=== PATIENT | female | born 1985 | race Caucasian/White ===

== ENCOUNTER 2016-07-07 12:02 | Emergency (ER) | payer OTHER ==
[~2016-07-07] VITALS: Ht 167.6 cm; Wt 65.3 kg
[~2016-07-07 12:02] MED LIST: ADAL40KI SC; ASPI-435 PO; LISI-729 PO; MULTTAB58 PO; OMEP20CA9 PO; PYRI60TA2 PO; VNTHFA/IN INH
[2016-07-07 12:08] VITALS: TEMP 37; Ht 167.6 cm; Wt 65.3 kg
[2016-07-07] MEDS ORDERED: ERYT250C PO (12:19)
[2016-07-07] MEDS ORDERED: NADO20TA PO (12:19)
[2016-07-07] MEDS ORDERED: ONDANSETRON INJ 2 MG/ML 2 ML VIAL IV STA (12:31)
[2016-07-07] MEDS ORDERED: SODIUM CHLORIDE 0.9% 1000ML 1,000 ML IV STA (12:31)
[2016-07-07] MEDS ORDERED: OPTIRAY 320 IV PRN (12:45)
[2016-07-07 12:49] VITALS: O2SAT 99
--- NOTE | 2016-07-07 13:06 | DIAGNOSTIC IMAGING REPORT ---
CHEST ONE VIEW PORTABLE CLINICAL HISTORY: Pain, radiating to the abdomen. COMPARISON STUDY: 07/16/2015 FINDINGS: There are postsurgical changes of a midline sternotomy. There is no change in the cardiac appearance. There is slight indistinctness of the right hemidiaphragm unchanged the prior study. There is no failure. There is no focal pulmonary consolidation. There are no significant pleural effusions.[ IMPRESSION: Minor right basilar scarring. No acute findings. Electronically signed by: Stefano Gaitan M.D. 07/07/2016 1:04 PM Dictated Date/Time: 07/07/2016 1:03 PM
[2016-07-07 13:09] LABS: BASO % 0.4 %; BASO ABS # 0.02 K/uL (0-0.2); COMPLETE YES; EOS % 5.4 %; HEMATOCRIT 41.9 % (37-47); IG% 0.2 %; LYMPH % 22.9 %; LYMPH ABS # 1.27 K/uL (1.2-3.4); MEAN CORPUSCULAR HEMOGLOBIN 27.5 pg (25-34); MEAN CORPUSCULAR HGB CONC 33.2 g/dl (32-36); MEAN PLATELET VOLUME 10.6 fL (7.4-10.4); MONO % 7.2 %; NEUT % 63.9 %; PLATELET COUNT 181 K/uL (130-400); RED BLOOD COUNT 5.05 M/uL (4.2-5.4); WHITE BLOOD COUNT 5.55 K/uL (4.8-10.8)
[2016-07-07 13:23] LABS: BUN/CREATININE RATIO 18.7 (10-20); CALCIUM 9.4 mg/dl (8.5-10.1); CREATININE 0.76 mg/dl (0.60-1.20)
[2016-07-07 13:29] LABS: URINE APPEARANCE CLEAR (CLEAR); URINE BILIRUBIN NEG (NEG); URINE COLOR YELLOW; URINE EPITHELIAL CELL AUTO 0-5 /lpf (0-5); URINE NITRITE NEG (NEG); URINE SPECIFIC GRAVITY 1.009 (1.000-1.030); UROBILINOGEN NEG (NEG); ZZUR CULT IF INDIC CLEAN CATCH NO
[2016-07-07 13:31] LABS: MANUAL MICROSCOPIC REQUIRED? NO; REVIEW REQ? NO
--- NOTE | 2016-07-07 13:57 | DIAGNOSTIC IMAGING REPORT ---
CT ABD/PELVIS IV CONTRAST ONLY CLINICAL HISTORY: Left upper quadrant abdominal pain. History of transposition of the great vessels. COMPARISON STUDY: 10/16/2013 TECHNIQUE: Following the IV administration of 91 mL of Optiray-320, CT scan of the abdomen and pelvis was performed from the lung bases to the proximal femurs. Images are reviewed in the axial, sagittal, and coronal planes. IV contrast was administered without complication. CT DOSE: 307.95 mGy.cm FINDINGS: Lower chest: There is a prominent inferior vena cava. There are no pleural effusions. There is no basilar consolidation. There is a 4 mm right lower lobe pulmonary nodule, unchanged from the prior study. There is also a stable subpleural 5 mm left lower lobe pulmonary nodule. Liver: The liver demonstrates heterogeneous enhancement without evidence of focal mass. Gallbladder: Surgically absent Spleen: The spleen is mildly enlarged measuring 12 cm. Pancreas: Unremarkable. Adrenal glands: Unremarkable. Kidneys: There is an 11 mm upper pole left renal cyst. 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 There is no hydronephrosis. Bowel: There are no transition zones to indicate bowel obstruction. There is a tiny umbilical hernia. There is no acute diverticulitis. There is no evidence of acute appendicitis. Peritoneum: There is a small amount of free fluid in the pelvis. No free air is visualized. Vasculature: The abdominal aorta is normal in course and caliber. There is minor infiltration of the fat surrounding the mesenteric vessels proximally. Adenopathy: None. Pelvic viscera: The bladder, and pelvic viscera are unremarkable. Skeletal structures: No destructive osseous lesions are seen. IMPRESSION: 1. No evidence of bowel obstruction. No evidence of free air 2. Mild splenomegaly similar to the prior study 3. Heterogeneous hepatic enhancement without evidence of focal mass 4. Surgically absent gallbladder 5. Mild nonspecific infiltration of the fat surrounding the central mesenteric vessels 6. No evidence of acute diverticulitis. No evidence of acute appendicitis. 7. Small amount of free pelvic fluid Electronically signed by: Stefano Gaitan M.D. 07/07/2016 1:55 PM Dictated Date/Time: 07/07/2016 1:49 PM
[2016-07-07] MEDS ORDERED: KETOROLAC TROMETHAMINE 30 MG/ML VIAL IV STA (14:36)
--- NOTE | 2016-07-07 14:39 | EMERGENCY ROOM VISIT NOTE ---
History Report prepared by Judd: Brittney Wilkinson Under the Supervision of: Dr. Franco Batista D.O. First contact with patient: 12:19 Chief Complaint: CARDIAC ASSESSMENT Stated Complaint: BACK PAIN,ANGINA,DIAPHRAGM PAIN,NAUSEA Nursing Triage Summary: patient c/o worsening back and chest pain, states "I have had bad back pain for several days, yesterday it got worse and I am having left sided chest pain. 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 She is also experiencing upper abdominal pain, shoulder, and back pain on the left side. Initially, she attributed the pain in her left shoulder to muscle strain, but the pain has not resolved. The pain in her chest is described as clenching. The back pain is described as dull and burning. She describes the pain as coming in waves, at it worst, becoming so painful that she cannot breathe. She is also experiencing some nausea. She has a history of cardiac problems and gastrointestinal issues. She recently started taking erythromycin for delayed gastric emptying and notes that her symptoms started soon after. Source of History: patient Onset: few days ago Position: chest (left) Quality: other (clenching) Timing: waxes/wanes Associated Symptoms: + abdominal pain, + back pain, + nausea Note: Pt reports shoulder pain. Review of Systems See HPI for pertinent positives & negatives. A total of 10 systems reviewed and were otherwise negative. Past Medical & Surgical Medical Problems: (1) Congenital heart disease (2) History of ascites (3) History of bacterial endocarditis (4) Ovarian Cyst Nec/Nos (5) Paroxysmal VT (6) Rheumatoid arthritis Surgical Problems: (1) H/O section (2) H/O esophagogastroduodenoscopy (3) Hx of cholecystectomy (4) S/P bidirectional Adeel shunt (5) S/P Ion-Taussig shunt (6) S/p modified Fontan operation (7) S/P right and left heart catheterization (8) S/p transcatheter biopsy (9) S/P tubal ligation Family History Cancer FH: HTN (hypertension) FH: diabetes mellitus FH: kidney disease Gallbladder disease Heart disease Social History Smoking Status: Never Smoker Marital Status: in relationship Housing Status: lives with family Occupation Status: unemployed Current/Historical Medications Scheduled Adalimumab (Humira Pen), 1 DOSE SC Q2WEEK Aspirin (Aspirin 81), 81 MG PO QAM Erythromycin Base (Erythromycin), 250 MG PO TID Lisinopril (Prinivil), 5 MG PO QAM Multiple Vitamin (Multivitamin), 1 TAB PO QAM Nadolol (Corgard), 20 MG PO DAILY Omeprazole (Prilosec), 20 MG PO QAM Allergies Coded Allergies: Metoclopramide (Verified Adverse Reaction, Intermediate, "SEVERE ANXIETY ATTACK", 07/07/16) Physical Exam Vital Signs Date Time Temp Pulse Resp B/P Pulse Ox O2 Delivery O2 Flow Rate FiO2 07/07/16 13:14 50 07/07/16 13:08 44 19 119/57 93 Room Air 07/07/16 12:49 99 Room Air 07/07/16 12:08 37.0 101 20 122/64 98 Room Air Physical Exam CONSTITUTIONAL/VITAL SIGNS: Reviewed / noted above. GENERAL: Non-toxic in appearance. INTEGUMENTARY: Warm, dry, and [place]. HEAD: Normocephalic. EYES: without scleral icterus or trauma. ENT/OROPHARYNX: clear and moist. LYMPHADENOPATHY/NECK: Is supple without lymphadenopathy or meningismus. RESPIRATORY: Lungs clear and equal. CARDIOVASCULAR: Regular rate and rhythm. GI/ABDOMEN: Soft, mild tenderness to palpation of epigastric and LUQ. No organomegaly or pulsatile mass. No rebound or guarding. Normal bowel sounds. EXTREMITIES: Warm and well perfused. BACK: No CVA tenderness. NEUROLOGICAL: Intact without focal deficits. PSYCHIATRIC: normal affect. MUSCULOSKELETAL: Normally developed with good muscle tone. Medical Decision & Procedures ER Provider Diagnostic Interpretation: X ray results and stated below per my interpretation and radiology interpretation. Radiology results as stated below per my review and radiologist interpretation: CHEST ONE VIEW PORTABLE CLINICAL HISTORY: Pain, radiating to the abdomen. COMPARISON STUDY: 07/16/2015 FINDINGS: There are postsurgical changes of a midline sternotomy. There is no change in the cardiac appearance. There is slight indistinctness of the right hemidiaphragm unchanged the prior study. There is no failure. There is no focal pulmonary consolidation. There are no significant pleural effusions.[ IMPRESSION: Minor right basilar scarring. No acute findings. Electronically signed by: Stefano Gaitan M.D. 07/07/2016 1:04 PM Dictated Date/Time: 07/07/2016 1:[address] ABD/PELVIS IV CONTRAST ONLY CLINICAL HISTORY: Left upper quadrant abdominal pain. History of transposition of the great vessels. COMPARISON STUDY: 10/16/2013 TECHNIQUE: Following the IV administration of 91 mL of Optiray-320, CT scan of the abdomen and pelvis was performed from the lung bases to the proximal femurs. Images are reviewed in the axial, sagittal, and coronal planes. IV contrast was administered without complication. CT DOSE: 307.95 mGy.cm FINDINGS: Lower chest: There is a prominent inferior vena cava. There are no pleural effusions. There is no basilar consolidation. There is a 4 mm right lower lobe pulmonary nodule, unchanged from the prior study. There is also a stable subpleural 5 mm left lower lobe pulmonary nodule. Liver: The liver demonstrates heterogeneous enhancement without evidence of focal mass. Gallbladder: Surgically absent Spleen: The spleen is mildly enlarged measuring 12 cm. Pancreas: Unremarkable. Adrenal glands: Unremarkable. Kidneys: There is an 11 mm upper pole left renal cyst. 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 There is no hydronephrosis. Bowel: There are no transition zones to indicate bowel obstruction. There is a tiny umbilical hernia. There is no acute diverticulitis. There is no evidence of acute appendicitis. Peritoneum: There is a small amount of free fluid in the pelvis. No free air is visualized. Vasculature: The abdominal aorta is normal in course and caliber. There is minor infiltration of the fat surrounding the mesenteric vessels proximally. Adenopathy: None. Pelvic viscera: The bladder, and pelvic viscera are unremarkable. Skeletal structures: No destructive osseous lesions are seen. IMPRESSION: 1. No evidence of bowel obstruction. No evidence of free air 2. Mild splenomegaly similar to the prior study 3. Heterogeneous hepatic enhancement without evidence of focal mass 4. Surgically absent gallbladder 5. Mild nonspecific infiltration of the fat surrounding the central mesenteric vessels 6. No evidence of acute diverticulitis. No evidence of acute appendicitis. 7. Small amount of free pelvic fluid Electronically signed by: Stefano Gaitan M.D. 07/07/2016 1:55 PM Dictated Date/Time: 07/07/2016 1:49 PM Laboratory Results 07/07/16 12:40 Red Blood Count 5.05, Mean Corpuscular Volume 83.0, Mean Corpuscular Hemoglobin 27.5, Mean Corpuscular Hemoglobin Concent 33.2, Mean Platelet Volume 10.6, Neutrophils (%) (Auto) 63.9, Lymphocytes (%) (Auto) 22.9, Monocytes (%) (Auto) 7.2, Eosinophils (%) (Auto) 5.4, Basophils (%) (Auto) 0.4, Neutrophils # (Auto) 3.55, Lymphocytes # (Auto) 1.27, Monocytes # (Auto) 0.40, Eosinophils # (Auto) 0.30, Basophils # (Auto) 0.02 07/07/16 12:40 Test 07/07/16 12:40 07/07/16 13:00 White Blood Count 5.55 K/uL (4.8-10.8) Red Blood Count 5.05 M/uL (4.2-5.4) Hemoglobin 13.9 g/dL (12.0-16.0) Hematocrit 41.9 % (37-47) Mean Corpuscular Volume 83.0 fL (80-100) Mean Corpuscular Hemoglobin 27.5 pg (25-34) Mean Corpuscular Hemoglobin Concent 33.2 g/dl (32-36) Platelet Count 181 K/uL (130-400) Mean Platelet Volume 10.6 fL (7.4-10.4) Neutrophils (%) (Auto) 63.9 % Lymphocytes (%) (Auto) 22.9 % Monocytes (%) (Auto) 7.2 % Eosinophils (%) (Auto) 5.4 % Basophils (%) (Auto) 0.4 % Neutrophils # (Auto) 3.55 K/uL (1.4-6.5) Lymphocytes # (Auto) 1.27 K/uL (1.2-3.4) Monocytes # (Auto) 0.40 K/uL (0.11-0.59) Eosinophils # (Auto) 0.30 K/uL (0-0.5) Basophils # (Auto) 0.02 K/uL (0-0.2) RDW Standard Deviation 43.1 fL (36.4-46.3) RDW Coefficient of Variation 14.3 % (11.5-14.5) Immature Granulocyte % (Auto) 0.2 % Immature Granulocyte # (Auto) 0.01 K/uL (0.00-0.02) Anion Gap 11.0 mmol/L (3-11) Est Creatinine Clear Calc Drug Dose 102.2 ml/min Estimated GFR () 122.9 Estimated GFR (Non- 106.0 BUN/Creatinine Ratio 18.7 (10-20) Calcium Level 9.4 mg/dl (8.5-10.1) Total Bilirubin 1.3 mg/dl (0.2-1) Direct Bilirubin 0.4 mg/dl (0-0.2) Aspartate Amino Transf (AST/SGOT) 21 U/L (15-37) Alanine Aminotransferase (ALT/SGPT) 30 U/L (12-78) Alkaline Phosphatase 66 U/L (45-117) Total Protein 8.6 gm/dl (6.4-8.2) Albumin 4.6 gm/dl (3.4-5.0) Lipase 179 U/L (73-393) Urine Color YELLOW Urine Appearance CLEAR (CLEAR) Urine pH 5.0 (4.5-7.5) Urine Specific [place] 1.009 (1.000-1.030) Urine Protein NEG (NEG) Urine Glucose (UA) NEG (NEG) Urine Ketones NEG (NEG) Urine Occult Blood NEG (NEG) Urine Nitrite NEG (NEG) Urine Bilirubin NEG (NEG) Urine Urobilinogen NEG (NEG) Urine Leukocyte Esterase NEG (NEG) Urine WBC (Auto) 0 /hpf (0-5) Urine RBC (Auto) 0-4 /hpf (0-4) Urine Hyaline Casts (Auto) 0 /lpf (0-5) Urine Epithelial Cells (Auto) 0-5 /lpf (0-5) Urine Bacteria (Auto) NEG (NEG) Urine Test NEG (NEG) Laboratory results as stated above per my review. Medications Administered Medications (Trade) Dose Ordered Sig/[place] Start Time Stop Time Status Last Admin Dose Admin Sodium Chloride (Nss 1000ml) 1,000 ml @ 999 mls/hr Q1H1M STAT IV 07/07/16 12:31 07/07/16 13:31 DC 07/07/16 13:03 999 MLS/HR Ondansetron HCl (Zofran Inj) 4 mg NOW STAT IV 07/07/16 12:31 07/07/16 12:35 DC 07/07/16 12:54 4 MG ECG Indication: chest pain Rate (beats per minute): 54 Rhythm: sinus bradycardia Findings: no ectopy, other (no acute injury) Comparison ECG Date: July 16, 2015 Change: no significant change ED Course 1225: Previous medical records were reviewed. The patient was evaluated in room C6. A complete history and physical examination was performed. 1231: Zofran Inj 4 mg IV, NSS 1000 ml @ 999 mls/hr IV. 1432: I reevaluated the patient. She is resting comfortably. I discussed the results and treatment plan. She verbalized understanding and agreement. She will be discharged home. Medical Decision Differential considered: pancreatitis, hepatitis, or acute cholecystitis, AAA, UTI, pyelonephritis, kidney stones, appendicitis, diverticulitis, shingles, bowel obstruction mesenteric ischemia, intussusception,hernia, ovarian torsion, ruptured ovarian cyst,ectopic , . This is a 31-year-old female who presents to the ED with a chief complaint of pain in the left upper quadrant and left shoulder for the past 3-7 days. She states that the pain waxes and wanes. It woke her from sleep last night. She reports a history of delayed gastric emptying. She also reports recently being placed on erythromycin for this. She sees Dr. Sykes. Patient describes a squeezing sensation in the left upper abdomen and behind the left shoulder. She reports a history of SVT as well as /infant surgery for transposition of the great vessels. The patient states that her symptoms seemed worse when she is sitting. She denies other complaints. Her exam was essentially unremarkable with exception of some mild tenderness to palpation over the epigastric area and left upper quadrant. EKG shows a sinus bradycardia at a rate of 52 and it is similar to a previous EKG. She has a rightward axis but this is unchanged from her previous. CT scan of the abdomen and pelvis reveals multiple megaly which is similar to previous CT scan. She has other nonspecific findings. Chest x-ray did not show acute disease. CBC was normal. Complete metabolic panel was normal. Lipase is normal. Urine did not show infection. The patient is not . The patient was told results the test. She is felt to be stable for discharge. Impression Primary Impression: Left upper quadrant abdominal pain of unknown etiology Scribe Attestation The scribe's documentation has been prepared under my direction and personally reviewed by me in its entirety. I confirm that the note above accurately reflects all work, treatment, procedures, and medical decision making performed by me. Departure Information Referrals Art Simental MD (PCP) Patient Instructions My [facility] Additional Instructions Take your Nexium daily. 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 Return to the emergency department for worsening or new concerns.
[2016-07-07 14:56] VITALS: BP 102/68; PULSE 55; O2SAT 98
== END 2016-07-07 14:58 | disposition home or self-care (01) ==
LOC: C.EDB 12:04 → C.EDC 14:58
DX: R10.12 Left upper quadrant pain (principal); M06.9 Rheumatoid arthritis, unspecified; Q24.9 Congenital malformation of heart, unspecified; Z79.899 Other long term (current) drug therapy; Z79.82 Long term (current) use of aspirin; Z83.3 Family history of diabetes mellitus; Z82.49 Family history of ischemic heart disease and other diseases of the circulatory system

== ENCOUNTER 2020-11-12 23:51 | Inpatient (IN) ==
--- NOTE | 2020-11-13 00:28 | Emergency Department Note ---
Impression & Plan Chest pain, Bradycardia, Hypoxia ED Provider Note Name: BEATA RUFF Age: 35 Sex: F Arrives Via: Walk-In Informant: Patient, ED Provider: Rasta Amaya MD Chief Complaint: Chest pain Impression: Chest Pain Bradycardia Hypoxia Medical Decision Makin yr old female with history cardiac transposition with surgery as infant arrives with further chest pain episode which has been on and off for last 2 weeks. She appears well though is a bit hypoxic on arrival with O2 sats in mid- upper 80s on RA. No symptoms on arrival. Holter monitor in place and thus I called them and they report no significant findings with primarily NSR, periodic sinus betsy down to 56 bpm, and a single episode ventricular triplets at 11:28am on 11/12/20. No junctional rhythm, SVT, VTach, nor other acute findings. Patient has normal CXR, normal labs, and otherwise unremarkable work-up. Unclear etiology of hypoxia, and while I would suspect a slightly low O2 given cardiac history, she notes she has never had O2 sats in 80s previously. Already had CTA chest just a few days ago and [place] [facility] [place] While here she was noted to have HR down to low 40s and asymptomatic. Discussed with hospitalist who will evaluate further. Of note, CTA was ordered by Hospitalist and report called to me, with similar findings to previous CTA Chest, and no clear evidence of PE, though still technically non-diagnostic given her anatomy and blood flow. Prior Medical Record and Triage/Nursing Notes reviewed by Me Additional history obtained from chart Differentials:Premature contractions, electrolyte abnormality, cardiac dysrhythmia, thyroid dysfunction, pulmonary embolism, infection, gastrointestinal, as well as other pathologies. Vital Signs: reviewed and remarkable for mild bradycardia Interventions: saline lock Labs:Reviewed and remarkable for no significant abnormalities Imaging:X ray results are stated below per my interpretation: Chest: 1 view: No infiltrate, no effusion, normal cardiac border. EKG:Per My Interpretation: Indication Chest Pain: Sinus betsy 57 bpm, qtc 432 with slight IRBBB. No Ectopy. No Ischemia. Compared to EKG 11/03/20, no significant changes. Cardiac/Tele Monitoring: Cardiac Monitoring: An Order was placed for continuous cardiac monitoring. The monitor shows a rate of 55 with a sinus betsy rhythm. Consults:Dr Ilan Chaudhary Hospitalist Plan: Disposition:Hospitalization. Condition: Good History of Present Illness:35 yr old female arrives for evaluation of chest pain. Patient arrives with another episode of bradycardia and chest pain. She has been having these on and off the the last two weeks. Extensive work-up including [place] [facility] [place] revealed junctional bradycardia during events and and she states they plan to have Pacemaker placed though discharged with current plan to return to ED if symptoms return. She notes return of symptoms tonight while wearing holter monitor. She states symptoms resolved on the way here. Non syncope, sob, nausea, vomiting, abdominal pain, leg swelling, headache, sore throat, urinary/bowel symptoms, fevers, chills, cou gh nor other symptoms. She took no medications prior to arrival. Nothing makes better nor worse. No falls, trauma, nor injuries. ROS: See above HPI for pertinent positives & negatives. A total of 10 systems reviewed and were otherwise negative. Past Medical History:See Below Past Surgical History:See Below Family History:See Below Social History:See Below Home Medications:See Below Allergies:See Below Vitals:Blood Pressure: 108/65, Pulse 56, RR 16, T 36.6C, O2 87% on RA Physical Exam: GENERAL: Patient is anxious appearing and in minimal distress. EYES: No scleral icterus, unremarkable pupils. ENT: Mucous membranes moist, no nasal congestion. NECK: No masses appreciated, nomeningismus, trachea is midline. RESPIRATORY: No dyspnea. Clear to auscultation and equal bilaterally. No wheeze, no rhonchi. CARDIOVASCULAR: Regular rate and rhythm.No murmurs, rubs, gallops appreciated. GASTROINTESTINAL: Abdomen soft, non-tender, no peritonitis.Bowel sounds positive.No masses appreciated. BACK: No midline tenderness, no CVA tenderness EXTREMITIES: Normal motion all extremities, no cyanosis, no edema. NEUROLOGIC: Alert and oriented, no acute motor or sensory deficits, no focal weakness, cranial nerves grossly intact. SKIN: No rash, no jaundice, no diaphoresis. PSYCH: Appropriate GCS: 15 ED Course: Times/Reassessments: Stable, no further symptoms, agreeable to hospitalist evaluation. 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" Gastroparesis GERD (gastroesophageal reflux disease) History of ascites History of bacterial endocarditis A CHILD Migraine HX Paroxysmal VT "STABLE WITH MEDS" PER PT Rheumatoid arthritis Trigeminal neuralgia of right side of face HX-RIGHT EYE APPEARS PUFFY Surgical History H/O section H/O esophagogastroduodenoscopy "10/15/14- normal bx, perihepatic ascites, kidney cyst" Hx of cholecystectomy S/P bidirectional Adeel shunt "1989- Hemifontan" S/P Ion-Taussig shunt "1987" S/P right and left heart catheterization "01/13/2014" S/P tubal ligation Family History (Updated 01/06/19 @ 08:18 by Oanh Johnson RN) Mother Family history of reaction to anesthesia SEVERE PONV Uncle Family history of diabetes mellitus Uncle Family history of diabetes mellitus Aunt Family history of diabetes mellitus Aunt Family history of diabetes mellitus Grandmother (Maternal) Family history of diabetes mellitus Social History Smoking Status: Former smoker Second Hand Exposure: Yes (ON OCC); Hx Alcohol Use: Yes Alcohol type: wine Hx Substance Use: Yes Substance Use Type Other:: HAS MEDICAL MARIJUANA CARD- USES TOPICALLY 1-2 X A WEEK Preferred Language: [place] Communication Ability: Effective Supervisor Sign [employer] Required: No Beliefs That Will Affect Care: None marital status: Current Living Situation: Spouse and Family Feels Safe at Home: Yes Assistive Devices: Glasses Allergies Allergies Allergy/AdvReac Type Severity Reaction Status Date / Time metoclopramide AdvReac Intermediate "SEVERE Verified 11/03/20 13:40 ANXIETY ATTACK" sucralfate [From Carafate] AdvReac anxious Verified 11/13/20 01:37 Home Meds Home Medications Medication Instructions Recorded Confirmed lisinopril 5 mg tablet 5 mg PO QPM 10/19/18 11/13/20 multivitamin 1 tab PO PM 10/19/18 11/13/20 nadolol 40 mg tablet (Corgard) 40 mg PO QPM 10/19/18 11/13/20 gabapentin 300 mg capsule 300 mg PO TID PRN 01/06/19 11/13/20 levothyroxine 75 mcg tablet 75 mcg PO QAM 07/03/20 11/13/20 (Synthroid) acetaminophen 500 mg tablet 1,000 mg PO Q6H PRN 11/03/20 11/13/20 (Tylenol Extra Strength) aspirin 81 mg tablet,delayed 81 mg PO PM 11/03/20 11/13/20 release phenazopyridine 95 mg tablet 95 mg PO PM PRN 11/03/20 11/13/20 famotidine 20 mg tablet 20 mg PO BID 11/13/20 11/13/20 Previous Rx's Medication Instructions Recorded omeprazole 40 mg capsule,delayed 40 mg PO DAILY 30 Days #30 cap 11/03/20 release Results & Data (ED) Vital Signs Vital Signs - 24 hr 11/13/20 00:00 11/13/20 00:12 11/13/20 01:36 Temperature 36.6 C Temperature Source Temporal Artery Scan Pulse Rate 73 53 L 51 L Pulse Rate [Right Finger] Respiratory Rate 20 15 15 Respiratory Effort / Characteristics Non-Labored Respiratory Depth Normal Blood Pressure 108/65 110/55 L 101/47 L Blood Pressure [Right Arm] Blood Pressure Mean 79 73 65 Blood Pressure Mean [Right Arm] Blood Pressure Position [Right Arm] Pulse Oximetry 87 L 96 98 Oxygen Delivery Method Room Air Nasal Cannula Nasal Cannula Oxygen Flow Rate 3 3 Sepsis Recent Fever Within 48 Hours No Sepsis New/Unexplained Change in Mental Status N/A Sepsis Action Taken by Nursing No Action Required 11/13/20 02:00 11/13/20 03:30 11/13/20 04:40 Temperature Temperature Source Pulse Rate 49 L Pulse Rate [Right Finger] 44 L 57 L Respiratory Rate 15 18 20 Respiratory Effort / Characteristics Normal for Patient Normal for Patient Respiratory Depth Blood Pressure 103/46 L Blood Pressure [Right Arm] 112/54 L 110/48 L Blood Pressure Mean 65 Blood Pressure Mean [Right Arm] 73 68 Blood Pressure Position [Right Arm] Lying Lying Pulse Oximetry 97 97 96 Oxygen Delivery Method Nasal Cannula Room Air Nasal Cannula Nasal Cannula Oxygen Flow Rate 3 3 3 Sepsis Recent Fever Within 48 Hours Sepsis New/Unexplained Change in Mental Status Sepsis Action Taken by Nursing 11/13/20 05:17 Temperature Temperature Source Pulse Rate 41 L Pulse Rate [Right Finger] Respiratory Rate 20 Respiratory Effort / Characteristics Respiratory Depth Blood Pressure 98/40 L Blood Pressure [Right Arm] Blood Pressure Mean Blood Pressure Mean [Right Arm] Blood Pressure Position [Right Arm] Pulse Oximetry 96 Oxygen Delivery Method Nasal Cannula Oxygen Flow Rate 3 Sepsis Recent Fever Within 48 Hours Sepsis New/Unexplained Change in Mental Status Sepsis Action Taken by Nursing Laboratory Data Result diagrams: 11/13/20 00:25 11/13/20 00:25 Lab Results 11/13/20 11/13/20 11/13/20 Range/Units 00:25 00:25 00:32 WBC 5.55 (4.8-10.8) K/uL RBC 4.44 (4.2-5.4) M/uL Hgb 12.7 (12.0-16.0) g/dL Hct 38.1 (37-47) % MCV 85.8 (80-100) fL MCH 28.6 (25-34) pg MCHC 33.3 (32-36) g/dL RDW Std Deviation 45.3 (36.4-46.3) fL RDW Coeff of [place]um[place] 14.4 (11.5-14.5) % Plt Count 191 (130-400) K/uL MPV 10.6 H (7.4-10.4) fL Immature Gran % (Auto) 0.2 % Neut % (Auto) 80.3 % Lymph % (Auto) 11.7 % [place] % (Auto) 5.8 % Eos % (Auto) 1.6 % Baso % (Auto) 0.4 % Neut # (Auto) 4.46 (1.4-6.5) K/uL Lymph # (Auto) 0.65 L (1.2-3.4) K/uL [place] # (Auto) 0.32 (0.11-0.59) K/uL Eos # (Auto) 0.09 (0-0.5) K/uL Baso # (Auto) 0.02 (0-0.2) K/uL Immature Gran # (Auto) 0.01 (0.00-0.02) K/uL APTT (21.0-31.0) Seconds PTT Ratio ABG pH (7.35-7.45) ABG pCO2 (35-46) mmHg ABG pO2 (80-95) mmHg ABG HCO3 (19-24) mmol/L ABG O2 Saturation (90-95) % ABG Base Excess (-9-1.8) mEq/L Akbar Test (Pos) Barometric Pressure mm/Hg Oxygen Given Sodium 138 (136-145) mmol/L Potassium 3.6 (3.5-5.1) mmol/L Chloride 109 H (98-107) mmol/L Carbon Dioxide 22 (21-32) mmol/L Anion Gap 7.0 (3-11) BUN 9 (7-18) mg/dl Creatinine 0.69 (0.6-1.2) mg/dl Est Cr Clr Drug Dosing 105.8 ml/min Est GFR ( Amer) 132.6 ml/min Est GFR (Non-Af Amer) 114.4 ml/min BUN/Creatinine Ratio 13.6 (10-20) Glucose 93 (70-99) mg/dl Calcium 9.3 (8.5-10.1) mg/dl Magnesium 2.1 (1.8-2.4) mg/dl Total Bilirubin 1.0 (0.2-1) mg/dl Direct Bilirubin 0.3 H (0-0.2) mg/dl AST 16 (15-37) U/L ALT 25 (12-78) U/L Alkaline Phosphatase 86 (45-117) U/L Troponin I < 0.015 (0-0.045) ng/ml NT-Pro-B Natriuret Pep 218 (0-450) pg/ml Total Protein 7.7 (6.4-8.2) gm/dl Albumin 4.1 (3.4-5.0) gm/dl Lipase 119 (73-393) U/L TSH 3.050 (0.300-4.500) uIu/ml Urine Color Yellow Urine Appearance Clear (Clear) Urine pH 7.0 (4.5-7.5) Ur Specific [place] 1.003 (1.000-1.030) Urine Protein Negative (Negative) Urine Glucose (UA) Negative (Negative) Urine Ketones Negative (Negative) Urine Blood Negative (Negative) Urine Nitrite Negative (Negative) Urine Bilirubin Negative (Negative) Urine Urobilinogen Negative (Negative) Ur Leukocyte Esterase Negative (Negative) Urine Test (Negative) Lyme Disease IgG Ab (Negative) Lyme Disease IgM Ab (Negative) COVID-19 Eval Order SARS-CoV-2 (PCR) (Negative) 11/13/20 11/13/20 11/13/20 Range/Units 00:32 00:32 00:55 WBC (4.8-10.8) K/uL RBC (4.2-5.4) M/uL Hgb (12.0-16.0) g/dL Hct (37-47) % MCV (80-100) fL MCH (25-34) pg MCHC (32-36) g/dL RDW Std Deviation (36.4-46.3) fL RDW Coeff of Yumiko (11.5-14.5) % Plt Count (130-400) K/uL MPV (7.4-10.4) fL Immature Gran % (Auto) % Neut % (Auto) % Lymph % (Auto) % [place] % (Auto) % Eos % (Auto) % Baso % (Auto) % Neut # (Auto) (1.4-6.5) K/uL Lymph # (Auto) (1.2-3.4) K/uL [place] # (Auto) (0.11-0.59) K/uL Eos # (Auto) (0-0.5) K/uL Baso # (Auto) (0-0.2) K/uL Immature Gran # (Auto) (0.00-0.02) K/uL APTT (21.0-31.0) Seconds PTT Ratio ABG pH (7.35-7.45) ABG pCO2 (35-46) mmHg ABG pO2 (80-95) mmHg ABG HCO3 (19-24) mmol/L ABG O2 Saturation (90-95) % ABG Base Excess (-9-1.8) mEq/L Akbar Test (Pos) Barometric Pressure mm/Hg Oxygen Given Sodium (136-145) mmol/L Potassium (3.5-5.1) mmol/L Chloride (98-107) mmol/L Carbon Dioxide (21-32) mmol/L Anion Gap (3-11) BUN (7-18) mg/dl Creatinine (0.6-1.2) mg/dl Est Cr Clr Drug Dosing ml/min Est GFR ( Amer) ml/min Est GFR (Non-Af Amer) ml/min BUN/Creatinine Ratio (10-20) Glucose (70-99) mg/dl Calcium (8.5-10.1) mg/dl Magnesium (1.8-2.4) mg/dl Total Bilirubin (0.2-1) mg/dl Direct Bilirubin (0-0.2) mg/dl AST (15-37) U/L ALT (12-78) U/L Alkaline Phosphatase (45-117) U/L Troponin I (0-0.045) ng/ml NT-Pro-B Natriuret Pep (0-450) pg/ml Total Protein (6.4-8.2) gm/dl Albumin (3.4-5.0) gm/dl Lipase (73-393) U/L TSH (0.300-4.500) uIu/ml Urine Color Urine Appearance (Clear) Urine pH (4.5-7.5) Ur Specific [place] (1.000-1.030) Urine Protein (Negative) Urine Glucose (UA) (Negative) Urine Ketones (Negative) Urine Blood (Negative) Urine Nitrite (Negative) Urine Bilirubin (Negative) Urine Urobilinogen (Negative) Ur Leukocyte Esterase (Negative) Urine Test Negative (Negative) Lyme Disease IgG Ab Negative (Negative) Lyme Disease IgM Ab Negative (Negative) COVID-19 Eval Order Covid19 at [facility] SARS-CoV-2 (PCR) (Negative) 11/13/20 11/13/20 11/13/20 Range/Units 00:55 02:02 05:12 WBC (4.8-10.8) K/uL RBC (4.2-5.4) M/uL Hgb (12.0-16.0) g/dL Hct (37-47) % MCV (80-100) fL MCH (25-34) pg MCHC (32-36) g/dL RDW Std Deviation (36.4-46.3) fL RDW Coeff of [place]umiko (11.5-14.5) % Plt Count (130-400) K/uL MPV (7.4-10.4) fL Immature Gran % (Auto) % Neut % (Auto) % Lymph % (Auto) % [place] % (Auto) % Eos % (Auto) % Baso % (Auto) % Neut # (Auto) (1.4-6.5) K/uL Lymph # (Auto) (1.2-3.4) K/uL [place] # (Auto) (0.11-0.59) K/uL Eos # (Auto) (0-0.5) K/uL Baso # (Auto) (0-0.2) K/uL Immature Gran # (Auto) (0.00-0.02) K/uL APTT 28.9 (21.0-31.0) Seconds PTT Ratio 1.1 ABG pH 7.46 H (7.35-7.45) ABG pCO2 30 L (35-46) mmHg ABG pO2 103 H (80-95) mmHg ABG HCO3 21 (19-24) mmol/L ABG O2 Saturation 98.0 H (90-95) % ABG Base Excess -1.8 (-9-1.8) mEq/L Akbar Test Pos (Pos) Barometric Pressure 731.1 mm/Hg Oxygen Given 3L Sodium (136-145) mmol/L Potassium (3.5-5.1) mmol/L Chloride (98-107) mmol/L Carbon Dioxide (21-32) mmol/L Anion Gap (3-11) BUN (7-18) mg/dl Creatinine (0.6-1.2) mg/dl Est Cr Clr Drug Dosing ml/min Est GFR ( Amer) ml/min Est GFR (Non-Af Amer) ml/min BUN/Creatinine Ratio (10-20) Glucose (70-99) mg/dl Calcium (8.5-10.1) mg/dl Magnesium (1.8-2.4) mg/dl Total Bilirubin (0.2-1) mg/dl Direct Bilirubin (0-0.2) mg/dl AST (15-37) U/L ALT (12-78) U/L Alkaline Phosphatase (45-117) U/L Troponin I (0-0.045) ng/ml NT-Pro-B Natriuret Pep (0-450) pg/ml Total Protein (6.4-8.2) gm/dl Albumin (3.4-5.0) gm/dl Lipase (73-393) U/L TSH (0.300-4.500) uIu/ml Urine Color Urine Appearance (Clear) Urine pH (4.5-7.5) Ur Specific [place] (1.000-1.030) Urine Protein (Negative) Urine Glucose (UA) (Negative) Urine Ketones (Negative) Urine Blood (Negative) Urine Nitrite (Negative) Urine Bilirubin (Negative) Urine Urobilinogen (Negative) Ur Leukocyte Esterase (Negative) Urine Test (Negative) Lyme Disease IgG Ab (Negative) Lyme Disease IgM Ab (Negative) COVID-19 Eval Order SARS-CoV-2 (PCR) NEGATIVE (Negative) Administered Medications Potassium Chloride 40 meq/ (Sodium Chloride) 1,020 mls @ 50 mls/hr IV .[id number] ONE Stop: 11/14/20 00:31 Last Admin: 11/13/20 04:43 Dose: 50 mls/hr Documented by: [id number] Discontinued Medications Ioversol (Optiray 320 125ml) 120 ml IV ONCE ONE Stop: 11/13/20 03:25 Last Admin: 11/13/20 03:25 Dose: 120 ml Documented by: [id number] Lidocaine HCl (Lidocaine 2% Jelly 5 Ml Tube) 1 ml EXT NOW ONE Stop: 11/13/20 03:52 Last Admin: 11/13/20 04:44 Dose: 1 ml Documented by: [id number] Discharge Plan Visit Data Chief Complaint: Chest Pain Stated Complaint: BRADYCARDIA, CHEST PAIN, DIZZINESS, SOB ED Provider: Rasta Amaya Discharge Problem: Chest pain, Bradycardia, Hypoxia Discharge Instructions Interventions: ED Discharge Assessment Last Done: 11/13/20 05:17 Discharge Problem: Chest pain Qualifiers: Chest pain type: other chest pain Qualified Code(s): R07.89 - Other chest pain
[2020-11-13 00:42] LABS: Basophils # (auto) 0.02 K/uL (0-0.2); Basophils % (auto) 0.4 %; Eosinophils # (auto) 0.09 K/uL (0-0.5); Eosinophils % (auto) 1.6 %; Hematocrit (blood only) 38.1 % (37-47); Hemoglobin 12.7 g/dL (12.0-16.0); Immature Granulocytes # (auto) 0.01 K/uL (0.00-0.02); Immature Granulocytes % (auto) 0.2 %; Lymphocytes # (auto) 0.65 K/uL (1.2-3.4); Lymphocytes % (auto) 11.7 %; Mean Corpuscular Hemoglobin 28.6 pg (25-34); Mean Corpuscular Hgb Conc 33.3 g/dL (32-36); Mean Corpuscular Volume 85.8 fL (80-100); Mean Platelet Volume 10.6 fL (7.4-10.4); Monocytes # (auto) 0.32 K/uL (0.11-0.59); Monocytes % (auto) 5.8 %; Neutrophils # (auto) 4.46 K/uL (1.4-6.5); Neutrophils % (auto) 80.3 %; Platelet Count 191 K/uL (130-400); RDW Coefficient of Variation 14.4 % (11.5-14.5); RDW Standard Deviation 45.3 fL (36.4-46.3); Red Blood Count 4.44 M/uL (4.2-5.4); White Blood Count 5.55 K/uL (4.8-10.8)
[2020-11-13 00:46] LABS: Appearance Urine Clear (Clear); Bilirubin Urine Negative (Negative); Blood Urine Negative (Negative); Color Urine Yellow; Glucose Urine UA Negative (Negative); Ketones Urine Negative (Negative); Leukocyte Esterase Urine Negative (Negative); Nitrite Urine Negative (Negative); Protein Urine Negative (Negative); Specific Gravity Urine 1.003 (1.000-1.030); Urobilinogen Urine Negative (Negative)
[2020-11-13 00:48] LABS: Pregnancy Test, Urine Negative (Negative)
[2020-11-13 01:12] LABS: Alanine Aminotransferase 25 U/L (12-78); Albumin Level 4.1 gm/dl (3.4-5.0); Aspartate Aminotransferase 16 U/L (15-37); BUN Creatinine Ratio 13.6 (10-20); Bilirubin Direct 0.3 mg/dl (0-0.2); Blood Urea Nitrogen 9 mg/dl (7-18); Calcium 9.3 mg/dl (8.5-10.1); Carbon Dioxide 22 mmol/L (21-32); Chloride 109 mmol/L (98-107); Creatinine Clr Calc Pharmacy 105.8 ml/min; Est GFR (African American) 132.6 ml/min; Est GFR (Non-African American) 114.4 ml/min; Glucose 93 mg/dl (70-99); Lipase 119 U/L (73-393); Magnesium 2.1 mg/dl (1.8-2.4); Potassium 3.6 mmol/L (3.5-5.1); Sodium 138 mmol/L (136-145)
[2020-11-13 01:23] LABS: Alkaline Phosphatase 86 U/L (45-117); NT Pro B Type Natriuretic Pept 218 pg/ml (0-450); Total Protein 7.7 gm/dl (6.4-8.2); Troponin I < 0.015 ng/ml (0-0.045)
[2020-11-13 02:21] LABS: Partial Thromboplastin Ratio 1.1; Partial Thromboplastin Time 28.9 Seconds (21.0-31.0)
[2020-11-13] MEDS ORDERED: OPTIRAY 320 125ml IV ONE (03:24)
[2020-11-13] MEDS ORDERED: LIDOCAINE 2% JELLY 5 ML TUBE EXT ONE (03:51)
--- NOTE | 2020-11-13 03:51 | History & Physical Report ---
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 difficile, hx chronic abdominal pain/gastroparesis GERD currently on PPI past tobacco abuse PCU Supplemental O2 Baseline ABG Atropine as needed symptomatic bradycardia Hold Nadolol for now TTE, Cardiology consult Re: Chest pain, possible symptomatic bradycardia [Case discussed with [facility] pediatric urologist advertising sales consultant (Dr. Rowland) who recommended contacting [facility] adult superintendent stations on-call given patient age if tertiary care transfer desired. I later spoke to Dr. Hines (advertising sales consultant [facility] Adult Cardiology) who was skeptical about patient's symptoms being attributable to symptomatic bradycardia despite patient's pediatric urologist (Dr. Yañez) EMR documentation.] Stool C. difficile DVT prophylaxis. Lovenox subcu Full code Text document was generated using Casagem voice recognition software. It may contain grammatical or spelling errors. Kindly contact undersigned for clarification of any documentation item in question. History of Present Illness Chief Complaint: Chest pain, shortness of breath Primary Care Provider: Art Simental MD History obtained from patient and records. 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 One month history of achy substernal pain with shortness of breath worse on exertion, intermittent symptoms without cough symptoms. Intermittent odyno phagia symptoms. Patient admitted at [facility] last week for symptoms. Odynophagia attributed to GERD/gastritis on EGD. Carafate added to patient's PPI regimen. Patient subsequently stopped Carafate due to reported anxiety from taking medication. Bradycardia in the 40s and dizziness, junctional bradycardia on EKG during [facility] confinement. Persistent symptoms after discharge from [facility]. Addition of achy right posterior headache symptoms along with some worsening of chronic abdominal pain with new watery diarrhea symptoms. Patient's [facility] pediatric urologist (Dr. Yñaez) told patient over the phone a few days ago that her chest pain/shortness of breath/dizziness symptoms may be attributed to symptomatic bradycardia/junctional rhythm. Paralegal Specialist to contact [facility] for advice and to refer patient to pediatric cardiovascular thoracic surgery at [facility] for possible epicardial pacemaker. Arrangements for outpatient event monitor to be made as per documentation. Patient brought to ER by for worsening symptoms along with hypoxemia of 80s last night using grandmothers pulse oximeter. Patient denies cough symptoms/fluid retention. Medical History as above Surgical History : Appendectomy, section, cholecystostomy, hysteroscopy/endometrial ablation, BTL, Ion-Taussig/ bidirectional Adeel (ehsan-Fontan)/modified Fontan heart surgeries Family History : Dementia, DM Personal/Social history : Past tobacco abuse, occasional EtOH intake, homemaker Allergies Allergy/AdvReac Type Severity Reaction Status Date / Time metoclopramide AdvReac Intermediate "SEVERE Verified 11/03/20 13:40 ANXIETY ATTACK" sucralfate [From Carafate] AdvReac anxious Verified 11/13/20 01:37 Home Medications Medication Instructions Recorded Confirmed Type lisinopril 5 mg tablet 5 mg PO QPM 10/19/18 11/13/20 History multivitamin 1 tab PO PM 10/19/18 11/13/20 History nadolol 40 mg tablet (Corgard) 40 mg PO QPM 10/19/18 11/13/20 History gabapentin 300 mg capsule 300 mg PO TID PRN 01/06/19 11/13/20 History levothyroxine 75 mcg tablet 75 mcg PO QAM 07/03/20 11/13/20 History (Synthroid) acetaminophen 500 mg tablet 1,000 mg PO Q6H PRN 11/03/20 11/13/20 History (Tylenol Extra Strength) aspirin 81 mg tablet,delayed 81 mg PO PM 11/03/20 11/13/20 History release omeprazole 40 mg capsule,delayed 40 mg PO DAILY 30 Days #30 cap 11/03/20 11/13/20 Rx release phenazopyridine 95 mg tablet 95 mg PO PM PRN 11/03/20 11/13/20 History famotidine 20 mg tablet 20 mg PO BID 11/13/20 11/13/20 History Past Med/Surg History Medical History 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, s/p correction" On 11/09/14 09:09 Andree Salgado wrote "Double-outlet right ventricle with transposition of the great arteries" Gastroparesis GERD (gastroesophageal reflux disease) History of ascites History of bacterial endocarditis A CHILD Migraine HX Paroxysmal VT "STABLE WITH MEDS" PER PT Rheumatoid arthritis Trigeminal neuralgia of right side of face HX-RIGHT EYE APPEARS PUFFY Surgical History H/O section H/O esophagogastroduodenoscopy "10/15/14- normal bx, perihepatic ascites, kidney cyst" Hx of cholecystectomy S/P bidirectional Adeel shunt "1989- Hemifontan" S/P Ion-Taussig shunt "1987" S/P right and left heart catheterization "01/13/2014" S/P tubal ligation Family History (Updated 01/06/19 @ 08:18 by Oanh Johnson RN) Mother Family history of reaction to anesthesia SEVERE PONV Uncle Family history of diabetes mellitus Uncle Family history of diabetes mellitus Aunt Family history of diabetes mellitus Aunt Family history of diabetes mellitus Grandmother (Maternal) Family history of diabetes mellitus Social History Smoking Status: Former smoker Second Hand Exposure: Yes (ON OCC); Hx Alcohol Use: No Hx Substance Use: No Preferred Language: Kinyarwanda Communication Ability: Effective Buffer Copper Required: No Beliefs That Will Affect Care: None marital status: Current Living Situation: Spouse Other Information That Helps Us Care for You: No Feels Safe at Home: Yes Safety Concerns: Feels Safe At This Time Assistive Devices: Glasses Review of Systems Review of Systems: As per HPI, all 10 systems reviewed, all other ROS negative Physical Exam Physical Exam: GENERAL: Slightly uncomfortable, wane, no respiratory distress SKIN: Normal color, warm HEENT: [place] palpebral conjunctivae, no ptosis, dry buccal mucosa, nasal cannula in place NECK : Supple, no tenderness CHEST : Decreased breath sounds, no tenderness HEART : Bradycardic, no obvious murmurs ABDOMEN: Some distention, minimal right-sided abdominal tenderness EXTREMITIES : No LE swelling/tenderness, no other conspicuous deformities noted NEUROLOGIC : Coherent, no facial asymmetry, no other gross focality Results & Data Results & Data ([facility]) Vital Signs (Past 12 Hours) Vital Signs Temp Pulse Resp BP Pulse Ox 11/13/20 02:00 49 L 15 103/46 L 97 11/13/20 01:36 51 L 15 101/47 L 98 11/13/20 00:12 53 L 15 110/55 L 96 11/13/20 00:00 36.6 C 73 20 108/65 87 L Laboratory Results Laboratory Results WBC 5.55 K/uL (4.8-10.8) 11/13/20 00:25 RBC 4.44 M/uL (4.2-5.4) 11/13/20 00:25 Hgb 12.7 g/dL (12.0-16.0) 11/13/20 00:25 Hct 38.1 % (37-47) 11/13/20 00:25 MCV 85.8 fL (80-100) 11/13/20 00:25 MCH 28.6 pg (25-34) 11/13/20 00:25 MCHC 33.3 g/dL (32-36) 11/13/20 00:25 RDW Std Deviation 45.3 fL (36.4-46.3) 11/13/20 00:25 RDW Coeff of Yumiko 14.4 % (11.5-14.5) 11/13/20 00:25 Plt Count 191 K/uL (130-400) 11/13/20 00:25 MPV 10.6 fL (7.4-10.4) H 11/13/20 00:25 Immature Gran % (Auto) 0.2 % 11/13/20 00:25 Neut % (Auto) 80.3 % 11/13/20 00:25 Lymph % (Auto) 11.7 % 11/13/20 00:25 Campbell % (Auto) 5.8 % 11/13/20 00:25 Eos % (Auto) 1.6 % 11/13/20 00:25 Baso % (Auto) 0.4 % 11/13/20 00:25 Neut # (Auto) 4.46 K/uL (1.4-6.5) 11/13/20 00:25 Lymph # (Auto) 0.65 K/uL (1.2-3.4) L 11/13/20 00:25 Campbell # (Auto) 0.32 K/uL (0.11-0.59) 11/13/20 00:25 Eos # (Auto) 0.09 K/uL (0-0.5) 11/13/20 00:25 Baso # (Auto) 0.02 K/uL (0-0.2) 11/13/20 00:25 Immature Gran # (Auto) 0.01 K/uL (0.00-0.02) 11/13/20 00:25 APTT 28.9 Seconds (21.0-31.0) 11/13/20 02:02 PTT Ratio 1.1 11/13/20 02:02 Sodium 138 mmol/L (136-145) 11/13/20 00:25 Potassium 3.6 mmol/L (3.5-5.1) 11/13/20 00:25 Chloride 109 mmol/L (98-107) H 11/13/20 00:25 Carbon Dioxide 22 mmol/L (21-32) 11/13/20 00:25 Anion Gap 7.0 (3-11) 11/13/20 00:25 BUN 9 mg/dl (7-18) 11/13/20 00:25 Creatinine 0.69 mg/dl (0.6-1.2) 11/13/20 00:25 Est Cr Clr Drug Dosing 105.8 ml/min 11/13/20 00:25 Est GFR ( Amer) 132.6 ml/min 11/13/20 00:25 Est GFR (Non-Af Amer) 114.4 ml/min 11/13/20 00:25 BUN/Creatinine Ratio 13.6 (10-20) 11/13/20 00:25 Glucose 93 mg/dl (70-99) 11/13/20 00:25 Calcium 9.3 mg/dl (8.5-10.1) 11/13/20 00:25 Magnesium 2.1 mg/dl (1.8-2.4) 11/13/20 00:25 Total Bilirubin 1.0 mg/dl (0.2-1) 11/13/20 00:25 Direct Bilirubin 0.3 mg/dl (0-0.2) H 11/13/20 00:25 AST 16 U/L (15-37) 11/13/20 00:25 ALT 25 U/L (12-78) 11/13/20 00:25 Alkaline Phosphatase 86 U/L (45-117) 11/13/20 00:25 Troponin I < 0.015 ng/ml (0-0.045) 11/13/20 00:25 NT-Pro-B Natriuret Pep 218 pg/ml (0-450) 11/13/20 00:25 Total Protein 7.7 gm/dl (6.4-8.2) 11/13/20 00:25 Albumin 4.1 gm/dl (3.4-5.0) 11/13/20 00:25 Lipase 119 U/L (73-393) 11/13/20 00:25 TSH 3.050 uIu/ml (0.300-4.500) 11/13/20 00:25 Urine Color Yellow 11/13/20 00:32 Urine Appearance Clear (Clear) 11/13/20 00:32 Urine pH 7.0 (4.5-7.5) 11/13/20 00:32 Ur Specific Temple 1.003 (1.000-1.030) 11/13/20 00:32 Urine Protein Negative (Negative) 11/13/20 00:32 Urine Glucose (UA) Negative (Negative) 11/13/20 00:32 Urine Ketones Negative (Negative) 11/13/20 00:32 Urine Blood Negative (Negative) 11/13/20 00:32 Urine Nitrite Negative (Negative) 11/13/20 00:32 Urine Bilirubin Negative (Negative) 11/13/20 00:32 Urine Urobilinogen Negative (Negative) 11/13/20 00:32 Ur Leukocyte Esterase Negative (Negative) 11/13/20 00:32 Urine Test Negative (Negative) 11/13/20 00:32 COVID-19 Eval Order Covid19 at [facility] 11/13/20 00:55 SARS-CoV-2 (PCR) NEGATIVE (Negative) 11/13/20 00:[address] head initial read: No acute abnormality. No acute intracranial hemorrhage or abnormal extra-axial fluid collection. No acute stroke. Ventricles and sulci normal in size for age. No midline shift. No paranasal sinus air-fluid level. No fracture. CT chest initial read: Appearance of the heart and mediastinal vascular structures are unchanged fromthe prior study. Patient status post sternotomy. Patient reportedlyhas a historyof repaired transposition of the great vessels according to the prior report with abnormal opacification of the chambers and pulmonary arterieswith severe limitations on evaluation for pulmonaryembolus. Dense contrast material enters the right subclavian vein into the SVC which directlyfills the right pulmonaryartery. Left pulmonary arteryis not opacified with contrast material, unchanged. There is dense contrast material within the right pulmonaryveinswhich fill the right atriumand the heart chambers, unchanged. There is redemonstrated inhomogeneous appearance of the opacified right pulmonaryarterywith prominent defect greatest in the right lower lobe, unchanged and likelyrepresents a combination of opacified and unopacified blood rather than pulmonaryemboli. However, a pulmonaryembolus maynot be visible in either lung. Interval increase in multifocal ground-glass infiltrates greatest throughout the right upper lobe. Mild bibasilar dependent atelectasis. Slight interval increase in size of a 3 mmnoncalcified peripheral nodule in the right lower lobe. No pleural effusion or pneumothorax. No fracture. Status post cholecystectomy. CT abdomen pelvis initial read: No acute inflammatoryor obstructive findings. Status post cholecystectomy. Decreased mildlyheterogeneous attenuation of liver parenchyma without focal mass. Decreased, minimal nonspecific infiltration of the fat along the mesenteric root vessels. No evidence of bowel obstruction or bowel wall thickening. Postsurgical changes near the cecumsuggesting appendectomy. Normal symmetric nephrograms. No hydronephrosis. Postsurgical changeswith surgical clips are redemonstrated in the lower chest and along the right cardiac border. There is persistent prominence of suprahepatic IVC. EKG as per my interpretation: Rate 55, sinus bradycardia, RAD, incomplete RBBB, LVH, no ischemia
[2020-11-13] MEDS ORDERED: POTASSIUM CHLORIDE 40 MEQ in SODIUM CHLORIDE 0.9% 1000ML 1,000 ML IV ONE (04:08)
[2020-11-13 04:29] LABS: Lyme Ab IgG w/WB Rflx Negative (Negative); Lyme Ab IgM w/WB Rflx Negative (Negative)
[2020-11-13 05:26] LABS: Allen Test Pos (Pos); Base Excess ABG -1.8 mEq/L (-9-1.8); HCO3 ABG 21 mmol/L (19-24); PCO2 ABG 30 mmHg (35-46); PO2 ABG 103 mmHg (80-95); pH ABG 7.46 (7.35-7.45)
[2020-11-13] MEDS ORDERED: NITROGLYCERIN SL 0.4 MG/TAB TAB SL PRN (05:50)
[2020-11-13] MEDS ORDERED: MoRPHine SULFATE 2 MG/ML CARP IV PRN (05:50)
[2020-11-13] MEDS ORDERED: LORazepam 0.25 MG/0.5 ML VIAL IV PRN ×2 (05:50)
[2020-11-13] MEDS ORDERED: traMADol HCL 50 MG TABLET PO PRN (05:50)
[2020-11-13] MEDS ORDERED: ATROPINE SULFATE 0.1 MG/ML 5ML SYR IV PRN (05:50)
[2020-11-13] MEDS ORDERED: PROMETHAZINE HCL 6.25 MG in SODIUM CHLORIDE 0.9% 50 ML IV PRN (05:50)
[2020-11-13] MEDS ORDERED: ACETAMINOPHEN 325 MG TAB PO PRN (05:50)
[2020-11-13] MEDS ORDERED: GABAPENTIN 300 MG CAP PO PRN (05:50)
[2020-11-13] MEDS ORDERED: LEVOTHYROXINE SODIUM 75 MCG TABLET PO SCH (06:30)
[2020-11-13] MEDS ORDERED: CONSULT PHARMACY STA (08:02)
[2020-11-13] MEDS ORDERED: SODIUM CHLORIDE 0.9% 1000ML 1,000 ML IV SCH (08:15)
--- NOTE | 2020-11-13 08:20 | CT Scan Report ---
CT OF THE HEAD WITHOUT CONTRAST CLINICAL HISTORY: Headache. COMPARISON STUDY: No previous studies for comparison. TECHNIQUE: Helical axial images of the head were obtained without IV contrast. Automated exposure con trol was utilized for the study. A dose lowering technique was utilized adhering to the principles o f ALARA. FINDINGS: No acute intracranial hemorrhage, midline shift or mass effect is present. The ventricular system is unremarkable. The basal cisterns are patent. No extra-axial collections are present. There are no findings to suggest acute dural sinus thrombosis or acute territorial infarct. No significant calvarial abnormalities are present. Visualized portions of the sinuses and mastoid air cells are gayla ar. IMPRESSION: No acute intracranial findings. ACT 112: Negative or not required by law. Electronically signed by: Magen Santamaria M.D. 11/13/2020 8:19 AM
--- NOTE | 2020-11-13 08:33 | CT Scan Report ---
CT ANGIOGRAPHY OF THE CHEST, PULMONARY EMBOLUS PROTOCOL CLINICAL HISTORY: Hypoxia. COMPARISON STUDY: Chest CT November 03, 2020. Chest radiograph November 13, 2020. TECHNIQUE: Following IV administration of 120 mL of Optiray, helical axial images of the chest were o btained utilizing the pulmonary embolus protocol. Maximal intensity projections and sagittal and cor onal reformats were viewed on an independent 3D workstation. IV contrast was administered without co mplication. Automated exposure control was utilized for the study. A dose lowering technique was ut ilized adhering to the principles of ALARA. CT DOSE: 1115.52 mGy.cm FINDINGS: Note is made of transposition of the great vessels status post repair. Evaluation for pulm onary emboli is markedly compromised given postoperative change. As before, the left pulmonary artery and its branches are not opacified. Apparent filling defects within the right pulmonary artery and b ranches are similar to prior exams and favor mixing artifact however evaluation for pulmonary emboli is nondiagnostic on this exam. The postoperative appearance is unchanged. There is no pericardial eff usion. There is no pneumothorax or pleural effusion. Several small subpleural pulmonary nodules are l ikely benign. Multiple mildly enlarged bilateral axillary lymph nodes are similar to prior chest CT o f November 03, 2020. These have increased in size since earlier chest CT of November 08, 2014. Asymmetric righ t lung groundglass opacities, most evident within the right upper lobe, have increased. There is no a cute fracture or suspicious lesion within the bony thorax. IMPRESSION: 1. Transposition of the great vessels status post repair. This renders evaluation of the pulmonary ar teries nondiagnostic for pulmonary emboli. Similar appearance to prior chest CT of November 03, 2020 and J [id number]. 2. Increase in right lung ground glass opacities, most pronounced within the right upper lobe. The fi ndings may reflect an infectious process or asymmetric pulmonary edema. 3. No change in multiple mildly enlarged bilateral axillary lymph node remain nonspecific. ACT 112: Negative or not required by law. Electronically signed by: Magen Santamaria M.D. 11/13/2020 8:32 AM
--- NOTE | 2020-11-13 08:34 | XRay Report ---
XR chest 1V portable HISTORY: shortness of breath COMPARISON: Chest 10/19/2018. FINDINGS: Cardiac silhouette is normal in size. There are poststernotomy changes. No pneumothorax. No pleural effusions. Mild interstitial thickening at the lung bases, unchanged. IMPRESSION: Chronic changes as described above. No acute process within the chest. ACT 112: Negative or not required by law. Electronically signed by: Chandler Ospina M.D. 11/13/2020 8:33 AM
--- NOTE | 2020-11-13 08:38 | CT Scan Report ---
CT OF THE ABDOMEN AND PELVIS WITH CONTRAST CLINICAL HISTORY: Right-sided abdominal pain. COMPARISON STUDY: CT of the abdomen pelvis November 03, 2020. TECHNIQUE: Following IV administration of 120 mL of Optiray, axial images of the abdomen and pelvis w ere obtained from the lung bases to the proximal femurs. Images were reviewed in the axial, sagittal, and coronal planes. IV contrast was administered without complication. Automated exposure control w as utilized for the study. A dose lowering technique was utilized adhering to the principles of KENNY Gibbons. FINDINGS: Please note that the chest CT will be reported separately. No pneumatosis, free air or port al venous gas is present. The liver is cirrhotic. Heterogeneity of the liver is unchanged. There is n o biliary ductal dilatation status post cholecystectomy. There is trace perisplenic fluid. Splenomega ly is unchanged. Major vasculature is patent. The main, right and left portal veins are patent. There is no hydronephrosis. There is no evidence for a bowel obstruction. The appendix is likely surgicall y absent. Bilateral contraceptive wires are in place. Trace fluid within the pelvis is noted. The ova anais are not enlarged. No acute fracture or suspicious lesion is identified within the visualized ske letal structures. IMPRESSION: 1. No acute process within the abdomen or pelvis. 2. No bowel obstruction. 3. Cirrhotic appearing liver. Stable splenomegaly. 4. Trace fluid within the abdomen and pelvis. ACT 112: Negative or not required by law. Electronically signed by: Magen Santamaria M.D. 11/13/2020 8:37 AM
[2020-11-13] MEDS ORDERED: PIPERACILL/TAZOBAC CONSULT ACTIVE PRN (08:44)
[2020-11-13] MEDS ORDERED: PIPERACILLIN/TAZOBACTAM 3.375 GM in DEXTROSE 5% 100 ML IV ONE (09:00)
[2020-11-13] MEDS ORDERED: PANTOprazole 40 MG TAB PO SCH (09:00)
[2020-11-13] MEDS ORDERED: ENOXAPARIN INJ 30 MG/0.3 ML SYR SQ SCH (09:00)
[2020-11-13] MEDS ORDERED: FAMOTIDINE 20 MG TAB PO SCH (09:00)
--- NOTE | 2020-11-13 09:29 | Cardiology Consultation ---
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 Her past medical history is otherwise notable for rheumatoid arthritis. (1) Bradycardia: -This is the third time the patient has presented to the emergency department in just over a week with profound symptoms that are suggestive of near syncope. Intermittent junctional rhythm in the 40s noted without prolonged pauses or AV block. Bradycardia is of course a known potential bed bug exterminator issue in patient's with her history. She is hemodynamically stable. Most recent echocardiogram was performed in 02/2020 , with stable findings. Will differ repeat to the Congenital team at [facility] to be performed there if felt to be indicated. No pericardial effusion on CTA of chest overnight. Patient has had serial negative troponin levels overnight and during recent admission at [facility]. Case discussed with Dr. Dodge of Pediatric Adult Congenital Cardiology [facility] and Dr Farah carbon cutter fo inpatient adult cardiology service. Will transfer patient for expedited work up, consideration of pacemaker, perhaps via surgical approach with epicardial leads. (2) Possible Aspiration Pneumonia: Patient with CT angiogram last night, that was nondiagnostic for pulmonary embolism given her underlying congenital anatomy, but there was a finding of right lung groundglass opacities more pronounced in the right lobe suggestive of asymmetric pulmonary edema or infectious process. This is progressed compared to the previous CT dated 11/03/2020, and it is questionable as to whether or not she may have had an aspiration event at the time of her EGD. She had a single pulse oximetry treatment that was low, 87%, at midnight last night, in the meantime, she has been 95% to 97% on room air. She denies cough. Clinically, she does not describe symptoms to me suggest that pneumonia is the reason why she has presented to the emergency room 3 times. I do think however it is reasonable to cover her with empiric antibiotics pending further evaluation with regards to pacemaker work-up in an effort to prevent sepsis. Currently she is on IV cefepime and oral Flagyl and effort to reduce IV fluid input. (3) Axillary lymphadenopathy: Bilateral axillary lymphadenopathy redemonstrated on CT overnight last night, similar to 11/03/2020. Patient does not have any subjective symptoms in her axilla. She has not received the COVID-19 vaccine recently or other vaccines. Question if this is reactive, related to her rheumatoid arthritis. (4) Painful Swallowing -no complaints to this regard at present. -Had recent EGD. History of Present Illness Attending Physician: Alberto Woods MD History of Present Illness Lisa Argueta is a 35 year old mother of two seen in cardiology consultation per the reqest of Dr Talavera for the evaluation of chest pain and bradycardia. 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 She follows with Dr. Baron Yañez of the Adult Cogenital Heart Disease Program at [facility]. She notes recent symptoms of episodes of chest heaviness and then feels like she is "slow ". She notes an associated pressure in her head and sinuses gets very short of breath with the episodes with associated dizziness and tingling of her hands and feet. Last 11/04/2020 she had a very profound episode and felt she was going to pass out. She had been seen in the emergency department at the [facility] on 11/03/2020 and was discharged. On 11/04/2020 she had a severe episode symptoms as described above. She was ultimately admitted to [facility] from 11/05/2020 until 11/07/2020. During that stay she was also noted to have pain with swallowing, although she minimizes this is being part of her symptoms at present and she is sitting upright eating her lunch meal without any difficulty swallowing. She underwent work-up including EGD without acute culprit findings. She was noted to have intermittent junctional rhythm in the range of 40 to 50 bpm. She had already been contacted by her primary lower school spanish teacher, Dr Yañez, with regards to concerns that the next step would be to discuss her case with Pediatric / Adult congenital EP to discuss if there was a transvenous option for her or if a cardiothoracic surgery approach with epicardial pacemaker leads was indicated given her congenital anatomy with past Fontan surgery. Past Cardiac History: 1.08/1987 surgery at 8-months of age, left Ion-Taussig shunt at . 2.09/1988 - hospitalized for strep viridans endocarditis at . 3.05/1989 surgery, BDG/Dani-Fontan at . 4.09/1991 -surgery, lateral Tunnel Fontan at . 5.11/04/92 cardiac catheterization by Art Garza at . 6.11/28/[address] Hope at . Additional Past Medical History: 1.Rheumatoid arthritis. 2. Successful pregnancies in 2009 and 2011 Allergies Allergy/AdvReac Type Severity Reaction Status Date / Time metoclopramide AdvReac Intermediate "SEVERE Verified 11/03/20 13:40 ANXIETY ATTACK" sucralfate [From Carafate] AdvReac anxious Verified 11/13/20 01:37 Home Medications Medication Instructions Recorded Confirmed Type lisinopril 5 mg tablet 5 mg PO QPM 10/19/18 11/13/20 History multivitamin 1 tab PO PM 10/19/18 11/13/20 History nadolol 40 mg tablet (Corgard) 40 mg PO QPM 10/19/18 11/13/20 History gabapentin 300 mg capsule 300 mg PO TID PRN 01/06/19 11/13/20 History levothyroxine 75 mcg tablet 75 mcg PO QAM 07/03/20 11/13/20 History (Synthroid) acetaminophen 500 mg tablet 1,000 mg PO Q6H PRN 11/03/20 11/13/20 History (Tylenol Extra Strength) aspirin 81 mg tablet,delayed 81 mg PO PM 11/03/20 11/13/20 History release omeprazole 40 mg capsule,delayed 40 mg PO DAILY 30 Days #30 cap 11/03/20 11/13/20 Rx release phenazopyridine 95 mg tablet 95 mg PO PM PRN 11/03/20 11/13/20 History famotidine 20 mg tablet 20 mg PO BID 11/13/20 11/13/20 History Patient History Medical History 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, s/p correction" On 11/09/14 09:09 Andree Salgado wrote "Double-outlet right ventricle with transposition of the great arteries" Gastroparesis GERD (gastroesophageal reflux disease) History of ascites History of bacterial endocarditis A CHILD Migraine HX Paroxysmal VT "STABLE WITH MEDS" PER PT Rheumatoid arthritis Trigeminal neuralgia of right side of face HX-RIGHT EYE APPEARS PUFFY Surgical History H/O section H/O esophagogastroduodenoscopy "10/15/14- normal bx, perihepatic ascites, kidney cyst" Hx of cholecystectomy S/P bidirectional Adeel shunt "1989- Hemifontan" S/P Ion-Taussig shunt "1987" S/P right and left heart catheterization "01/13/2014" S/P tubal ligation Family History Mother Family history of reaction to anesthesia SEVERE PONV Uncle Family history of diabetes mellitus Uncle Family history of diabetes mellitus Aunt Family history of diabetes mellitus Aunt Family history of diabetes mellitus Grandmother (Maternal) Family history of diabetes mellitus Social History Smoking Status: Former smoker Second Hand Exposure: Yes (ON OCC); Hx Alcohol Use: No Hx Substance Use: No Preferred Language: French Communication Ability: Effective Button Breaker Required: No Beliefs That Will Affect Care: None marital status: Current Living Situation: Spouse Other Information That Helps Us Care for You: No Feels Safe at Home: Yes Safety Concerns: Feels Safe At This Time Assistive Devices: None Review of Systems Review of Systems: All systems reviewed & are unremarkable except as noted in HPI & below Physical Exam Physical Exam: Cardiac Enzymes 11/13/20 11/13/20 Range/Units 00:25 08:43 AST 16 (15-37) U/L Troponin I < 0.015 < 0.015 (0-0.045) ng/ml Coagulation 11/13/20 Range/Units 02:02 APTT 28.9 (21.0-31.0) Seco nds CBC 11/13/20 Range/Units 00:25 WBC 5.55 (4.8-10.8) K/uL RBC 4.44 (4.2-5.4) M/uL Hgb 12.7 (12.0-16.0) g/dL Hct 38.1 (37-47) % Plt Count 191 (130-400) K/uL Neut # (Auto) 4.46 (1.4-6.5) K/uL Lymph # (Auto) 0.65 L (1.2-3.4) K/uL Beckham # (Auto) 0.32 (0.11-0.59) K/uL Eos # (Auto) 0.09 (0-0.5) K/uL Baso # (Auto) 0.02 (0-0.2) K/uL Comprehensive Metabolic Panel 11/13/20 Range/Units 00:25 Sodium 138 (136-145) mmol/L Potassium 3.6 (3.5-5.1) mmol/L Chloride 109 H (98-107) mmol/L Carbon Dioxide 22 (21-32) mmol/L BUN 9 (7-18) mg/dl Creatinine 0.69 (0.6-1.2) mg/dl Glucose 93 (70-99) mg/dl Calcium 9.3 (8.5-10.1) mg/dl Direct Bilirubin 0.3 H (0-0.2) mg/dl AST 16 (15-37) U/L ALT 25 (12-78) U/L Alkaline Phosphata se 86 (45-117) U/L Total Protein 7.7 (6.4-8.2) gm/dl Albumin 4.1 (3.4-5.0) gm/dl Intake and Output 11/12/20 11/13/20 11/13/20 22:59 06:59 14:59 Intake Total 529.167 / 529.167 Balance 529.167 / 529.167 Intake: IV 529.167 / 529.167 Piperacillin/T azobactam 3.375 115 / 115 gm In Dextrose 5% 100 ml @ 230 mls/hr IV NOW ONE Rx#:[id number] Potassium Chlo ride 40 meq In 414.167 / 414.167 Sodium Chlorid e 0.9% 1000ML 1, 000 ml @ 50 ml s/hr IV .[id number] ONE Rx#:[id number] Other: Weight 57.1 kg Weight Measureme nt Method Standing Scale Constitutional: No acute distress. Tearful. Respiratory: normal respiratory effort, lungs clear to auscultation Cardiovascular: RRR, no murmur, no edema Chest (Breasts): Additional Comments: well healed midline sternotomy incision Gastrointestinal (Abdomen): normal bowel sounds, soft, nontender, no hepatosplenomegaly Neurologic: PERRL, EOMI, accommodation nl, no face palsy, no dysarthria Results & Data ([facility]) Vital Signs (Past 12 Hours) Vital Signs Temp Pulse Pulse Resp BP BP BP 11/13/20 08:00 40 L 11/13/20 07:40 36.7 C 40 L 16 103/64 11/13/20 05:45 36.4 C L 56 L 18 103/59 L 11/13/20 05:17 41 L 20 98/40 L 11/13/20 04:40 57 L 20 110/48 L 11/13/20 03:30 44 L 18 112/54 L 11/13/20 02:00 49 L 15 103/46 L 11/13/20 01:36 51 L 15 101/47 L 11/13/20 00:12 53 L 15 110/55 L 11/13/20 00:00 36.6 C 73 20 108/65 Pulse Ox Pulse Ox 11/13/20 08:00 95 11/13/20 07:40 95 11/13/20 05:45 98 11/13/20 05:17 96 11/13/20 04:40 96 11/13/20 03:30 97 11/13/20 02:00 97 11/13/20 01:36 98 11/13/20 00:12 96 11/13/20 00:00 87 L Laboratory Results Cardiac Enzymes 11/13/20 11/13/20 Range/Units 00:25 08:43 AST 16 (15-37) U/L Troponin I < 0.015 < 0.015 (0-0.045) ng/ml Coagulation 11/13/20 Range/Units 02:02 APTT 28.9 (21.0-31.0) Seconds CBC 11/13/20 Range/Units 00:25 WBC 5.55 (4.8-10.8) K/uL RBC 4.44 (4.2-5.4) M/uL Hgb 12.7 (12.0-16.0) g/dL Hct 38.1 (37-47) % Plt Count 191 (130-400) K/uL Neut # (Auto) 4.46 (1.4-6.5) K/uL Lymph # (Auto) 0.65 L (1.2-3.4) K/uL Beckham # (Auto) 0.32 (0.11-0.59) K/uL Eos # (Auto) 0.09 (0-0.5) K/uL Baso # (Auto) 0.02 (0-0.2) K/uL Comprehensive Metabolic Panel 11/13/20 Range/Units 00:25 Sodium 138 (136-145) mmol/L Potassium 3.6 (3.5-5.1) mmol/L Chloride 109 H (98-107) mmol/L Carbon Dioxide 22 (21-32) mmol/L BUN 9 (7-18) mg/dl Creatinine 0.69 (0.6-1.2) mg/dl Glucose 93 (70-99) mg/dl Calcium 9.3 (8.5-10.1) mg/dl Direct Bilirubin 0.3 H (0-0.2) mg/dl AST 16 (15-37) U/L ALT 25 (12-78) U/L Alkaline Phosphatase 86 (45-117) U/L Total Protein 7.7 (6.4-8.2) gm/dl Albumin 4.1 (3.4-5.0) gm/dl Intake and Output 11/12/20 11/13/20 11/13/20 22:59 06:59 14:59 Intake Total 529.167 / 529.167 Balance 529.167 / 529.167 Intake: IV 529.167 / 529.167 Piperacillin/Tazobactam 3.375 115 / 115 gm In Dextrose 5% 100 ml @ 230 mls/hr IV NOW ONE Rx#:[id number] Potassium Chloride 40 meq In 414.167 / 414.167 Sodium Chloride 0.9% 1000ML 1, 000 ml @ 50 mls/hr IV .[id number] ONE Rx#:[id number] Other: Weight 57.1 kg Weight Measurement Method Standing Scale Diagnostic Findings EKG performed 11/13/2020 at 12:07 AM and reviewed independently revealed sinus bradycardia 57 bpm, with incomplete right bundle branch block morphology. Telemetry intermittent junctional rhythm in the 40s to 50s, sinus bradycardia in the 50s.
[2020-11-13] MEDS ORDERED: CEFEPIME CONSULT ACTIVE PRN (11:18)
[2020-11-13 11:26] LABS: D Dimer 590 ug/L FEU (0-500)
--- NOTE | 2020-11-13 13:28 | Electrocardiogram Report ---
Test Reason : Blood Pressure : / mmHG Vent. Rate : 057 BPM Atrial Rate : 057 BPM P-R Int : 162 ms QRS Dur : 094 ms QT Int : 444 ms P-R-T Axes : 022 246 050 degrees QTc Int : 432 ms Sinus bradycardia Right superior axis deviation Incomplete right bundle branch block Right ventricular hypertrophy with repolarization abnormality Poor R wave progression, consider anterior [place] vs. lead placement vs. LVH Abnormal ECG When compared with ECG of 03-NOV-2020 11:27, No significant change was found Confirmed by Terrell Del Castillo ([id number]) on 11/13/2020 1:28:32 PM Referred By: REFERRED SELF Confirmed By:Terrell Del Castillo
[2020-11-13] MEDS ORDERED: PIPERACILLIN/TAZOBACTAM 3.375 GM in DEXTROSE 5% 100 ML IV SCH (14:00)
[2020-11-13] MEDS ORDERED: metroNIDAZOLE 500 MG TAB PO SCH (14:00)
--- NOTE | 2020-11-13 14:37 | Hospitalist Progress Note ---
Date of Service November 13, 2020 Assessment & Plan (1) Acute hypoxemic respiratory failure: Plan: Possible symptomatic bradycardia hx junctional bradycardia on EKG during last week's confinement at [facility] -- Nadolol held Combat Control Manager consulted -- transfer to [facility] -- [place] Screen negative RUL Pneumonia, likely Aspiration Related with Hypoxia -- s/p EGD 11/05/20 in [facility] -- seen on CT chest PE cannot be ruled out Dimer 590 -- IV Cefepime + Flagyl double outlet right ventricle with transposition of great arteries status post surgery postural orthostatic tachycardia syndrome as per records history paroxysmal VT on Nadolol rheumatoid arthritis, stable Diarrhea rule out C. difficile, hx chronic abdominal pain/gastroparesis GERD currently on PPI past tobacco abuse DVT prophylaxis. Lovenox subcu Full code plan of care discussed with patient in detail and at length all questions answered she is understanding, agreeable, comfortable with the plan of care Admission and Anticipated Discharge Date Admission Date: November 13, 2020 Subjective ff up for symptomatic bradycardia, etc seen resting in bed, comfortable, appears weak reports feeling fatigued on 2 L o2 via nasal cannula denies active dyspnea, chest pain, dizziness, palpitations no cough, chills no other symptoms Review of Systems Review of Systems: all negative except for above Physical Exam Physical Exam: General- oriented x 3, not in distress, speaks in sentences with no effort or accessory muscle use Eyes- anicteric Neck- no JVD Lungs- mild rhonchi R upper lung field clear on the rest of lung peacock Heart- normal rate, regular rhythm; no murmurs Abdomen- normal bowel sounds, nondistended, soft, nontender Extremities- no pretibial edema, no calf tenderness Neuro- alert, oriented x 3; no gross focal neurologic deficits Skin- warm & dry Results & Data Results & Data ([facility]) Vital Signs (Past 12 Hours) Vital Signs Temp Pulse Pulse Resp BP BP BP 11/13/20 11:50 36.4 C L 54 L 17 100/64 11/13/20 08:00 40 L 11/13/20 07:40 36.7 C 40 L 16 103/64 11/13/20 05:45 36.4 C L 56 L 18 103/59 L 11/13/20 05:17 41 L 20 98/40 L 11/13/20 04:40 57 L 20 110/48 L 11/13/20 03:30 44 L 18 112/54 L Pulse Ox Pulse Ox 11/13/20 11:50 95 11/13/20 08:00 95 11/13/20 07:40 95 11/13/20 05:45 98 11/13/20 05:17 96 11/13/20 04:40 96 11/13/20 03:30 97 all noted and reviewed including below
--- NOTE | 2020-11-13 14:48 | Discharge Summary ---
Date of Service November 13, 2020 Admission HPI Per Admitting Provider History obtained from patient and records. 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 One month history of achy substernal pain with shortness of breath worse on exertion, intermittent symptoms without cough symptoms. Intermittent odynophagia symptoms. Patient admitted at [facility] last week for symptoms. Odynophagia attributed to GERD/gastritis on EGD. Carafate added to patient's PPI regimen. Patient subsequently stopped Carafate due to reported anxiety from taking medication. Bradycardia in the 40s and dizziness, junctional bradycardia on EKG during [facility] confinement. Persistent symptoms after discharge from [facility]. Addition of achy right posterior headache symptoms along with some worsening of chronic abdominal pain with new watery diarrhea symptoms. Patient's [facility] pediatric urologist (Dr. Yañez) told patient over the phone a few days ago that her chest pain/shortness of breath/dizziness symptoms may be attributed to symptomatic bradycardia/junctional rhythm. Heading And Priming Operator to contact [facility] for advice and to refer patient to pediatric cardiovascular thoracic surgery at [facility] for possible epicardial pacemaker. Arrangements for outpatient event monitor to be made as per documentation. Patient brought to ER by for worsening symptoms along with hypoxemia of 80s last night using grandmothers pulse oximeter. Patient denies cough symptoms/fluid retention. Medical History as above Surgical History : Appendectomy, section, cholecystostomy, hysteroscopy/endometrial ablation, BTL, Ion-Taussig/ bidirectional Adeel (ehsan-Fontan)/modified Fontan heart surgeries Family History : Dementia, DM Personal/Social history : Past tobacco abuse, occasional EtOH intake, homemaker Admission Exam Per Admitting Provider GENERAL: Slightly uncomfortable, wane, no respiratory distress SKIN: Normal color, warm HEENT: [place] palpebral conjunctivae, no ptosis, dry buccal mucosa, nasal cannula in place NECK : Supple, no tenderness CHEST : Decreased breath sounds, no tenderness HEART : Bradycardic, no obvious murmurs ABDOMEN: Some distention, minimal right-sided abdominal tenderness EXTREMITIES : No LE swelling/tenderness, no other conspicuous deformities noted NEUROLOGIC : Coherent, no facial asymmetry, no other gross focality Principal Diagnosis SYMPTOMATIC BRADYCARDIA ASPIRATION PNEUMONIA Discharge Exam General- oriented x 3, not in distress, speaks in sentences with no effort or accessory muscle use Eyes- anicteric Neck- no JVD Lungs- mild rhonchi R upper lung field clear on the rest of lung peacock Heart- normal rate, regular rhythm; no murmurs Abdomen- normal bowel sounds, nondistended, soft, nontender Extremities- no pretibial edema, no calf tenderness Neuro- alert, oriented x 3; no gross focal neurologic deficits Skin- warm & dry Discharge Data Allergies Allergy/AdvReac Type Severity Reaction Status Date / Time metoclopramide AdvReac Intermediate "SEVERE Verified 11/03/20 13:40 ANXIETY ATTACK" sucralfate [From Carafate] AdvReac anxious Verified 11/13/20 01:37 Consultations 11/13/20 01:38 ED Decision to Admit Stat 11/13/20 05:50 Consult Cardiology Routine Ordered Studies 11/13/20 02:22 CT abd pelvis IV con only Urgent CT angio chest PE protocol Urgent CT head/brain wo con Urgent Hospital Course (1) Acute hypoxemic respiratory failure: Possible symptomatic bradycardia hx junctional bradycardia on EKG during last week's confinement at [facility] -- Nadolol held Heading And Priming Operator consulted -- discussed with Dr. Andrews, transfer to [facility] -- [place] Screen negative RUL Pneumonia, likely Aspiration Related with Hypoxia -- s/p EGD 11/05/20 in [facility] -- seen on CT chest PE cannot be ruled out Dimer 590 -- IV Cefepime + Flagyl double outlet right ventricle with transposition of great arteries status post surgery postural orthostatic tachycardia syndrome as per records history paroxysmal VT on Nadolol rheumatoid arthritis, stable Diarrhea rule out C. difficile, hx chronic abdominal pain/gastroparesis GERD currently on PPI past tobacco abuse DVT prophylaxis. Lovenox subcu Full code plan of care discussed with patient in detail and at length all questions answered she is understanding, agreeable, comfortable with the plan of care Total Time Total Time Spent Total Time Spent (In Minutes): 55 minutes Discharge Plan Discharge Items Patient Disposition: Transfer Acute Care Hospital Reason For Visit: HYPOXEMIC RESP FAILURE, SYMPTOMATIC BRADYCARDIA Discharge Diagnosis: SYMPTOMATIC BRADYCARDIA ASPIRATION PNEUMONIA WITH HYPOXIA Activity: As commented below Activity Comment: BEDREST Non-emergency contact: Primary Care Provider Call non-emergency contact if: you have any medication questions and your symptoms worsen Follow-up/Referrals: Art Simental MD [Primary Care Provider] - Diet: Regular Addtl Attending Provider Instructions: PLEASE REFER TO DISCHARGE SUMMARY. Pending Studies at Discharge: No Stand-Alone Forms: My [facility] Skilled Items Patient informed of condition?: Yes DNR: No Discharge Level of Care: Other Communicable Disease: No Discharge Prognosis: Other Lines: Peripheral IV Urinary Catheter: No Medications and DC Order Prescriptions: New cefepime 2 gram Recon Soln 2 g Not Applicable UD Qty: 10 RF: 0 metronidazole 500 mg Tablet 500 mg PO TID Qty: 20 RF: 0 enoxaparin [Lovenox] 30 mg/0.3 mL Syringe 30 mg subcut QAM Qty: 3 RF: 0 Continued multivitamin Tablet 1 tab PO PM RF: 0 lisinopril 5 mg Tablet 5 mg PO QPM RF: 0 gabapentin 300 mg Capsule 300 mg PO TID PRN (Reason: Pain) RF: 0 levothyroxine [Synthroid] 75 mcg tablet 75 mcg PO QAM RF: 0 famotidine 20 mg tablet 20 mg PO BID RF: 0 aspirin 81 mg Tablet,Delayed Release (Dr/Ec) 81 mg PO PM RF: 0 acetaminophen [Tylenol Extra Strength] 500 mg Tablet 1,000 mg PO Q6H PRN (Reason: Pain) RF: 0 phenazopyridine [Azo] 95 mg Tablet 95 mg PO PM PRN (Reason: uti) RF: 0 omeprazole 40 mg capsule,delayed release(DR/EC) 40 mg PO DAILY 30 Days Qty: 30 RF: 0 Discontinued nadolol [Corgard] 40 mg Tablet 40 mg PO QPM RF: 0 Discharge Orders: Discharge Order (Routine); Ordered 11/13/20 Ordered By: Alberto Woods Admission Data Admit Date/Time: 11/13/20 04:52 Attending Provider: Alberto Woods Admit Provider: Rickie Talavera Primary Care Provider: Art Simental Other Providers: Rickie Talavera ; Jeremy Combs ; Dusty Andrews ; Lito Castorena ; Chester Thayer ; Chalo Dia ; Rafael Salas ; Josefina Corral ; Tamara Alvarado ; Kelsey Vasquez. ; Sancho Baltazar
[2020-11-13] MEDS ORDERED: CEFEPIME 2,000 MG in SYRINGE 0 ML IV SCH (16:00)
[2020-11-13] MEDS ORDERED: lisinopril 5 MG TAB PO SCH (21:00)
[2020-11-13] MEDS ORDERED: ASPIRIN 81 MG ECTAB PO SCH (21:00)
[2020-11-13] MEDS ORDERED: MULTIVITAMIN TAB PO SCH (21:00)
== END 2020-11-13 15:31 | disposition short-term general hospital (02) | DRG 308 ==
LOC: ED 23:51 → 2S 11-13 04:52